=== PATIENT | male | born 1990 | race Caucasian/White ===

== ENCOUNTER 2020-03-31 09:30 | Emergency (ER) | payer BC ==
[2020-03-31 09:48] VITALS: TEMP 98.4
[2020-03-31] MEDS ORDERED: SODIUM CHLORIDE 0.9% 1,000 ML IV STA (10:01)
[2020-03-31 10:32] LABS: Appearance,Urine Clear (Clear); Bilirubin,Urine Negative (Negative); Blood,Urine Negative (Negative); Color,Urine Light Yellow; Glucose,Urine (UA) Negative (Negative); Ketones,Urine Negative (Negative); Leukocyte Esterase,Urine Negative (Negative); Nitrite,Urine Negative (Negative); PH, Urine 6.5 (5.0-8.0); Protein,Urine Negative (Negative); Specific Gravity,Urine 1.007 (1.001-1.035); Urobilinogen,Urine <2.0 mg/dL (<2.0)
[2020-03-31 10:41] LABS: ALT 52 U/L (4-49); AST 54 U/L (17-59); African American GFR (CKD) >90 (>60 ml/min/1.73 sqM); Albumin 4.7 g/dL (3.5-5.0); Alkaline Phosphatase 68 U/L (38-126); Anion Gap 8 mmol/L; Blood Urea Nitrogen 15 mg/dL (9-20); Calcium 9.4 mg/dL (8.4-10.2); Carbon Dioxide 25 mmol/L (22-30); Chloride 105 mmol/L (98-107); Creatine Kinase 855 U/L (55-170); Glucose 109 mg/dL (74-99); Magnesium 1.8 mg/dL (1.6-2.3); Non-African American GFR(CKD) >90 (>60 ml/min/1.73 sqM); Potassium 4.5 mmol/L (3.5-5.1); Sodium 138 mmol/L (137-145); Total Bilirubin 1.1 mg/dL (0.2-1.3)
--- NOTE | 2020-03-31 10:42 | ED ---
Weakness HPI - General Chief complaint: Weakness Stated complaint: Chest pain/weakness/anxiety Time Seen by Provider: 03/31/20 09:40 Source: patient Mode of arrival: ambulatory Limitations: no limitations - History of Present Illness Initial comments: 30-year-old male with past history of heart murmur/aortic stenosis who presents to the emergency department with reported diffuse muscle aches. Patient states for the past 3 weeks he has felt progressively weak with muscle cramps. Reports that his symptoms originally began in his legs and has now moved up to his arms. Denies any unilateral numbness or weakness. States his uncles porch please see may have overexerted himself. he did see his primary care physician office who completed some laboratory studies. reports that he has not gotten any of his labs as of yet. this morning he was driving to work and became very anxious thinking about his symptoms. reports to "having a small panic attack" prompting him to come into the emergency room. He denies any fevers or chills. No difficulties with ambulation. Denies any back or flank pain. No changes in his bowel or bladder habits. No shortness of breath. No ripping or tearing sensation to his back. Denies any nausea or vomiting. No family history of muscular dystrophy. No recent travel. No other alleviating, precipitating or modifying factors - Related Data Home Medications Medication Instructions Recorded Confirmed Cetirizine HCl [Zyrtec] 10 mg PO DAILY PRN 03/31/20 03/31/20 Ibuprofen [Motrin Ib] 200 mg PO Q8H PRN 03/31/20 03/31/20 Indomethacin [Indocin] 50 mg PO TID PRN 03/31/20 03/31/20 Allergies Allergy/AdvReac Type Severity Reaction Status Date / Time No Known Allergies Allergy Verified 03/31/20 11:01 Review of Systems ROS Statement: Those systems with pertinent positive or pertinent negative responses have been documented in the HPI. ROS Other: All systems not noted in ROS Statement are negative. Past Medical History Additional Past Medical History / Comment(s): Heart murmur, aortic stenosis History of Any Multi-Drug Resistant Organisms: None Reported Past Surgical History: Heart Catheterization Past Psychological History: No Psychological Hx Reported Smoking Status: Never smoker Past Alcohol Use History: Occasional Past Drug Use History: None Reported General Exam Limitations: no limitations Course Vital Signs 03/31/20 03/31/20 03/31/20 09:43 09:47 10:11 Temperature 98.4 F Pulse Rate 103 H 71 Pulse Rate [ 99 [employer] Digital [employer] ] Respiratory 18 16 Rate Blood Pressure 154/111 125/81 O2 Sat by Pulse 100 100 Oximetry 03/31/20 03/31/20 12:07 12:27 Temperature Pulse Rate 90 Pulse Rate [ [employer] ] Respiratory 18 Rate Blood Pressure 125/81 154/94 O2 Sat by Pulse 98 Oximetry - Reevaluation(s) Reevaluation #1: Redrawing patient's labs at this time due to low counts 03/31/20 11:23 EKG Findings - EKG Comments: EKG Findings:: EKG demonstrates a sinus rhythm with a ventricular rate of 76. WA interval 136. QRS 82. QTC 400. Inverted T-wave lead 3. J-point elevation in 1, 2, aVL, V2 through V6. No reciprocal changes. Medical Decision Making - Medical Decision Making Upon arrival the patient's placed into room 1. A thorough history and physical exam is performed. Patient does have 5 out of 5 muscle strength in all 4 extre mities. No fatigable weakness. Peripheral IV is established. The patient is given a 2 L bolus of normal saline. Laboratory studies were conducted. I do review the labs were performed by his primary care physician. MICHELL and rheumatoid factor are negative. I did complete additional laboratory studies. CPK is elevated at 855. I discussed diagnosis, differential and treatment options. The patient will be discharged home and is to follow-up with his primary care physician for recheck of his CPK level and additional evaluation of his symptoms. The patient is a new or worsening symptoms he should return to the emergency room. Patient was in agreement with this plan and he was discharged home in stable condition - Lab Data Result diagrams: 03/31/20 11:24 03/31/20 10:07 Lab Results 03/31/20 03/31/20 03/31/20 Range/Units 10:07 10:07 10:07 WBC (3.8-10.6) k/uL RBC (4.30-5.90) m/uL Hgb (13.0-17.5) gm/dL Hct (39.0-53.0) % MCV (80.0-100.0) fL MCH (25.0-35.0) pg MCHC (31.0-37.0) g/dL RDW (11.5-15.5) % Plt Count (150-450) k/uL Neutrophils % % Lymphocytes % % Monocytes % % Eosinophils % % Basophils % % Neutrophils # (1.3-7.7) k/uL Lymphocytes # (1.0-4.8) k/uL Monocytes # (0-1.0) k/uL Eosinophils # (0-0.7) k/uL Basophils # (0-0.2) k/uL PT (9.0-12.0) sec INR (<1.2) APTT (22.0-30.0) sec Sodium 138 (137-145) mmol/L Potassium 4.5 (3.5-5.1) mmol/L Chloride 105 (98-107) mmol/L Carbon Dioxide 25 (22-30) mmol/L Anion Gap 8 mmol/L BUN 15 (9-20) mg/dL Creatinine 1.07 (0.66-1.25) mg/dL Est GFR (CKD-EPI)AfAm >90 (>60 ml/min/1.73 sqM) Est GFR (CKD-EPI)NonAf >90 (>60 ml/min/1.73 sqM) Glucose 109 H (74-99) mg/dL Plasma Lactic Acid Terell (0.7-2.0) mmol/L Calcium 9.4 (8.4-10.2) mg/dL Magnesium 1.8 (1.6-2.3) mg/dL Total Bilirubin 1.1 (0.2-1.3) mg/dL AST 54 (17-59) U/L ALT 52 H (4-49) U/L Alkaline Phosphatase 68 (38-126) U/L Creatine Kinase 855 H (55-170) U/L Troponin I (0.000-0.034) ng/mL Total Protein 8.0 (6.3-8.2) g/dL Albumin 4.7 (3.5-5.0) g/dL TSH 3.070 (0.465-4.680) mIU/L Urine Color Light Yellow Urine Appearance Clear (Clear) Urine pH 6.5 (5.0-8.0) Ur Specific [place] 1.007 (1.001-1.035) Urine Protein Negative (Negative) Urine Glucose (UA) Negative (Negative) Urine Ketones Negative (Negative) Urine Blood Negative (Negative) Urine Nitrite Negative (Negative) Urine Bilirubin Negative (Negative) Urine Urobilinogen <2.0 (<2.0) mg/dL Ur Leukocyte Esterase Negative (Negative) Heterophile Antibody Negative (Negative) 03/31/20 03/31/20 03/31/20 Range/Units 10:07 10:07 11:24 WBC 7.7 (3.8-10.6) k/uL RBC 4.91 (4.30-5.90) m/uL Hgb 15.0 (13.0-17.5) gm/dL Hct 44.6 (39.0-53.0) % MCV 90.8 (80.0-100.0) fL MCH 30.5 (25.0-35.0) pg MCHC 33.6 (31.0-37.0) g/dL RDW 12.5 (11.5-15.5) % Plt Count 183 (150-450) k/uL Neutrophils % 76 % Lymphocytes % 17 % Monocytes % 4 % Eosinophils % 1 % Basophils % 1 % Neutrophils # 5.8 (1.3-7.7) k/uL Lymphocytes # 1.3 (1.0-4.8) k/uL Monocytes # 0.3 (0-1.0) k/uL Eosinophils # 0.1 (0-0.7) k/uL Basophils # 0.0 (0-0.2) k/uL PT (9.0-12.0) sec INR (<1.2) APTT (22.0-30.0) sec Sodium (137-145) mmol/L Potassium (3.5-5.1) mmol/L Chloride (98-107) mmol/L Carbon Dioxide (22-30) mmol/L Anion Gap mmol/L BUN (9-20) mg/dL Creatinine (0.66-1.25) mg/dL Est GFR (CKD-EPI)AfAm (>60 ml/min/1.73 sqM) Est GFR (CKD-EPI)NonAf (>60 ml/min/1.73 sqM) Glucose (74-99) mg/dL Plasma Lactic Acid Terell 1.3 (0.7-2.0) mmol/L Calcium (8.4-10.2) mg/dL Magnesium (1.6-2.3) mg/dL Total Bilirubin (0.2-1.3) mg/dL AST (17-59) U/L ALT (4-49) U/L Alkaline Phosphatase (38-126) U/L Creatine Kinase (55-170) U/L Troponin I <0.012 (0.000-0.034) ng/mL Total Protein (6.3-8.2) g/dL Albumin (3.5-5.0) g/dL TSH (0.465-4.680) mIU/L Urine Color Urine Appearance (Clear) Urine pH (5.0-8.0) Ur Specific [place] (1.001-1.035) Urine Protein (Negative) Urine Glucose (UA) (Negative) Urine Ketones (Negative) Urine Blood (Negative) Urine Nitrite (Negative) Urine Bilirubin (Negative) Urine Urobilinogen (<2.0) mg/dL Ur Leukocyte Esterase (Negative) Heterophile Antibody (Negative) 03/31/20 Range/Units 11:56 WBC (3.8-10.6) k/uL RBC (4.30-5.90) m/uL Hgb (13.0-17.5) gm/dL Hct (39.0-53.0) % MCV (80.0-100.0) fL MCH (25.0-35.0) pg MCHC (31.0-37.0) g/dL RDW (11.5-15.5) % Plt Count (150-450) k/uL Neutrophils % % Lymphocytes % % Monocytes % % Eosinophils % % Basophils % % Neutrophils # (1.3-7.7) k/uL Lymphocytes # (1.0-4.8) k/uL Monocytes # (0-1.0) k/uL Eosinophils # (0-0.7) k/uL Basophils # (0-0.2) k/uL PT 10.5 (9.0-12.0) sec INR 1.0 (<1.2) APTT 24.0 (22.0-30.0) sec Sodium (137-145) mmol/L Potassium (3.5-5.1) mmol/L Chloride (98-107) mmol/L Carbon Dioxide (22-30) mmol/L Anion Gap mmol/L BUN (9-20) mg/dL Creatinine (0.66-1.25) mg/dL Est GFR (CKD-EPI)AfAm (>60 ml/min/1.73 sqM) Est GFR (CKD-EPI)NonAf (>60 ml/min/1.73 sqM) Glucose (74-99) mg/dL Plasma Lactic Acid Terell (0.7-2.0) mmol/L Calcium (8.4-10.2) mg/dL Magnesium (1.6-2.3) mg/dL Total Bilirubin (0.2-1.3) mg/dL AST (17-59) U/L ALT (4-49) U/L Alkaline Phosphatase (38-126) U/L Creatine Kinase (55-170) U/L Troponin I (0.000-0.034) ng/mL Total Protein (6.3-8.2) g/dL Albumin (3.5-5.0) g/dL TSH (0.465-4.680) mIU/L Urine Color Urine Appearance (Clear) Urine pH (5.0-8.0) Ur Specific [place] (1.001-1.035) Urine Protein (Negative) Urine Glucose (UA) (Negative) Urine Ketones (Negative) Urine Blood (Negative) Urine Nitrite (Negative) Urine Bilirubin (Negative) Urine Urobilinogen (<2.0) mg/dL Ur Leukocyte Esterase (Negative) Heterophile Antibody (Negative) Disposition Clinical Impression: Muscle cramps, Elevated CPK Disposition: HOME SELF-CARE Condition: Stable Instructions (If sedation given, give patient instructions): Muscle Cramp (ED) Additional Instructions: Increase fluid intake. Follow-up with your primary care physician in regards your symptoms. Return to the emergency room for any new or worsening symptoms Is patient prescribed a controlled substance at d/c from ED?: No Referrals: Jacey Ornelas DO [Primary Care Provider] - 1-2 days Time of Disposition: 12:13
[2020-03-31] MEDS ORDERED: SODIUM CHLORIDE 0.9% 1,000 ML IV ONE (11:06)
[2020-03-31 11:34] LABS: Basophils % (A) 1 %; Eosinophils # (A) 0.1 k/uL (0-0.7); Eosinophils % (A) 1 %; HCT 44.6 % (39.0-53.0); Lymphocytes # (A) 1.3 k/uL (1.0-4.8); Lymphocytes % (A) 17 %; MCH 30.5 pg (25.0-35.0); MCHC 33.6 g/dL (31.0-37.0); MCV 90.8 fL (80.0-100.0); Mean Platelet Volume 6.9; Monocytes # (A) 0.3 k/uL (0-1.0); Monocytes % (A) 4 %; Neutrophils # (A) 5.8 k/uL (1.3-7.7); Neutrophils % (A) 76 %; Platelet Count 183 k/uL (150-450); RBC 4.91 m/uL (4.30-5.90); RDW 12.5 % (11.5-15.5); WBC 7.7 k/uL (3.8-10.6)
[2020-03-31 12:21] LABS: Prothrombin Time 10.5 sec (9.0-12.0)
[2020-03-31 12:28] VITALS: BP 154/94; PULSE 90; RESP 18
== END 2020-03-31 12:27 | disposition home or self-care (01) ==
LOC: EC 09:30
DX: R25.2 Cramp and spasm (principal); R79.89 Other specified abnormal findings of blood chemistry
CPT/HCPCS: 36415; 80053; 81003; 82550; 83605; 83735; 84443; 84484; 85025; 85610; 85730; 86308; 93005; 96360; 96361; 99285

== ENCOUNTER 2021-04-25 06:17 | Day surgery (SDC) | payer BC ==
[2021-04-19 15:11] VITALS: BMI 36.0
[~2021-04-25 06:17] MED LIST: ACETAMINOPHEN TAB 500 MG TAB PO PRN; DEXAMETHASONE SOD PHOSPHATE 4 MG/ML 1 ML VIAL IV ONE; HEPARIN SODIUM,PORCINE/PF 5,000 UNIT/0.5 ML SYRINGE SQ PRN; HYDROmorphone 0.5 MG/0.5 ML SYRINGE IVP PRN; Pre Op ABX Message 1 EACH MISC MISCELLANE ONE
[2021-04-25 06:50] VITALS: RESP 16
[2021-04-25] MEDS: ONDANSETRON 4 MG/2 ML VIAL IVP ONE ×2 (07:07→09:50)
[2021-04-25] MEDS: LACTATED RINGERS 1,000 ML IV SCH ×2 (07:07→09:49)
[2021-04-25] MEDS ORDERED: PROPOFOL 10 MG/ML 20 ML VIAL IV ONE (07:49)
[2021-04-25] MEDS ORDERED: LIDOCAINE 1% INJ 10MG/ML (20 ML MDV) ONE (07:49)
[2021-04-25] MEDS ORDERED: MIDAZOLAM 2 MG/2 ML VIAL ONE (07:49)
[2021-04-25] MEDS ORDERED: fentaNYL (PF) 50 MCG/ML 2 ML AMP ONE (07:49)
[2021-04-25] MEDS ORDERED: SODIUM CHLORIDE 0.9% 50 ML with ceFAZolin 2,000 MG IV ONE ×2 (07:54)
--- NOTE | 2021-04-25 08:00 | P.GSHP ---
History of Present Illness H&P Date: 04/25/21 Chief Complaint: Myositis, muscle weakness 31-year-old here today for a left quadriceps muscle biopsy. Patient has had muscular weakness and elevated CPK levels. Please refer to recent history of physical. Patient had an EMG and has been seen by rheumatology. They're req uesting open muscle biopsy. Patient says left side is slightly worse than right. Both upper and lower extremities involved. Past Medical History Additional Past Medical History / Comment(s): Heart murmur, aortic stenosis, GENERALIZED WEAKNESS AND ELEVATED CK LEVELS History of Any Multi-Drug Resistant Organisms: None Reported Past Surgical History: Heart Catheterization Past Anesthesia/Blood Transfusion Reactions: No Reported Reaction Smoking Status: Never smoker - Past Family History Mother Family Medical History: Deep Vein Thrombosis (DVT) Medications and Allergies Home Medications Medication Instructions Recorded Confirmed Type Cetirizine HCl [Zyrtec] 10 mg PO DAILY PRN 03/31/20 04/19/21 History Allergies Allergy/AdvReac Type Severity Reaction Status Date / Time No Known Allergies Allergy Verified 04/25/21 06:51 Surgical - Exam Vital Signs Temp Pulse Resp BP Pulse Ox 97.2 F L 80 16 139/96 99 04/25/21 06:47 04/25/21 06:47 04/25/21 06:47 04/25/21 06:47 04/25/21 06:47 Physical exam: General: Well-developed, well-nourished HEENT: Normocephalic, sclerae nonicteric Abdomen: Nontender, nondistended Extremities: No edema Neuro: Alert and oriented Assessment and Plan (1) Myositis Narrative/Plan: Will proceed with left quadriceps muscle biopsy. Current Visit: Yes Status: Acute Code(s): M60.9 - MYOSITIS, UNSPECIFIED SNOMED Code(s): 17587922
[2021-04-25] MEDS ORDERED: BUPIVACAINE (PF) 0.5% 30 ML VIAL SQ ONE (08:14)
[2021-04-25 08:54] VITALS: TEMP 96.8
[2021-04-25] MEDS ORDERED: NALOXONE 0.4 MG/ML 1 ML VIAL IV PRN (08:55)
[2021-04-25] MEDS ORDERED: HYDROcodone/APAP 5-325MG 1 EACH TAB PO PRN (08:55)
--- NOTE | 2021-04-25 08:59 | P.OP ---
Date of Procedure: 04/25/21 Procedure(s) Performed: PREOPERATIVE DIAGNOSIS: Myositis, muscle weakness POSTOPERATIVE DIAGNOSIS: Same PROCEDURE: Left quadriceps muscle biopsy SURGEON: Kim EBL: Jae Dietz ANESTHESIA: Gen. COMPLICATIONS: None OPERATIVE PROCEDURE: Patient place in the operative table in supine position. The patient was placed under general anesthesia. Left thigh was prepped and draped sterilely. A longitudinal incision was made overlying the mid aspect of the left thigh. The saphenous tissues were divided using electrocautery. The fascia was then divided as well. A 3 x 1 cm piece of muscle was removed. This was cut into 3 portions and sent to the [facility] as per their instructions. The fascia was reapproximated using a running 3-0 Vicryl stitch. Subcutaneous tissues closed using 3-0 Vicryl sutures. Skin closed using a 4-0 Monocryl sutures. Skin glue was applied. DISPOSITION: Stable to recovery room
[2021-04-25] MEDS ORDERED: ONDANSETRON 4 MG/2 ML VIAL ONE (09:46)
[2021-04-25 10:18] VITALS: BP 122/79; PULSE 86
== END 2021-04-25 10:22 | disposition home or self-care (01) ==
LOC: OR 06:17
PROVIDERS: ATTEND Surgery
DX: M60.9 Myositis, unspecified (principal); Q23.1 Congenital insufficiency of aortic valve
CPT/HCPCS: 20205; 87635; J2250; J1100; J2405; J0690; J2001; J3010; J2704; J1644